=== PATIENT | male | born 1960 | race Caucasian/White ===

== ENCOUNTER 2016-07-03 18:43 | Emergency (ER) | payer OTHER ==
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
--- NOTE | ~2016-07-03 | CR63 ---
[facility] A Service of [facility] & [facility] RADIOLOGY TEXT RESULTS PATIENT: CATERINA MCCONNELL LOCATION: [facility] : 60 UNIT #: [id number] AGE: [address]: AUNG SHARPE SEX: M ORDER DR: [id number] [facility] [address] [place], [place] [address] [id number] E MR#: [id number] Acc #: [id number] NAME: CATERINA MCCONNELL. : 1960 SEX: M STUDY DATE/TIME: 07/03/2016 18:32 UNIT: [facility] ROOM: STUDY DESCRIPTION: CR Chest 2 View Attending Physician: Aung Sharpe Aprn Referring Physician: No Primary Care Physician Ordering Physician: Ulises Dalal M.D. Primary Care Physician: No Primary Care Physician MEDICAL IMAGING REPORT This report is preliminary unless electronic signature is present EXAM Chest PA and lateral 07/03/2016. HISTORY Chest congestion, COPD exacerbation today. Smoking history for 30 years. Benign essential hypertension. FINDINGS PA and lateral examination of the chest upright shows a good expansion of the parenchyma with a normal distribution of the pulmonary vascularity. There is no indication of congestion, effusion, infiltrate, tumor, or nodular density. The pleural reflections and diaphragmatic contours are normal. The cardiac silhouette and mediastinal anatomy is within normal limits. IMPRESSION Normal chest. Dictated by... Von Packer M.D. THIS IS AN ELECTRONICALLY VERIFIED REPORT Von Packer M.D. at 07/04/2016 3:26 PM KRT/gz TD: 07/04/2016 14:01 JOB #: [id number] MEDICAL IMAGING REPORT COPY
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
[~2016-07-03 18:43] MED LIST: ALBUTEROL17 GM INH; BAYER ASPIRIN325 M1 PO; COMBIVENT U/D3 M1 INH; LEVAQUIN750 MG PO; LOPRESSOR PO; MEDROL PO; MUCINEX PO; OMEGA 3 FISH OI1 CAP PO; PRINIVIL20 M1 PO; VICODIN HP 10-1 EACH PO; VICODIN PO; ZANAFLEX PO
== END 2016-07-03 20:24 | disposition home or self-care (01) ==
LOC: CFTX 18:43
DX: S13.4XXA Sprain of ligaments of cervical spine, initial encounter (principal); R51 Headache; I10 Essential (primary) hypertension; Z86.73 Personal history of transient ischemic attack (TIA), and cerebral infarction without residual deficits; J44.9 Chronic obstructive pulmonary disease, unspecified; F17.210 Nicotine dependence, cigarettes, uncomplicated; V49.00XA Driver injured in collision with unspecified motor vehicles in nontraffic accident, initial encounter
CPT/HCPCS: 70450; 71020; 72125; 73130; 99284